=== PATIENT | male | born 1960 | race Caucasian/White ===

== ENCOUNTER 2017-11-23 07:59 | Day surgery (SDC) | payer OTHER ==
[2017-11-23] MEDS ORDERED: MIDAZOLAM 1 MG/ML 2 ML INJ ×3 (10:10→10:11)
[2017-11-23] MEDS ORDERED: FENTAnyl 50 MCG/ML VIAL (10:11)
[2017-11-23] MEDS ORDERED: PROPOFOL 20 ML ×2 (10:20→10:27)
== END 2017-11-23 12:17 | disposition home or self-care (01) ==
LOC: GIL 07:59
DX: Z12.11 Encounter for screening for malignant neoplasm of colon (principal); D12.6 Benign neoplasm of colon, unspecified; K64.8 Other hemorrhoids; I10 Essential (primary) hypertension
CPT/HCPCS: 45380; 88305

== ENCOUNTER 2019-04-07 12:27 | Outpatient (CLI) | payer OTHER ==
[2019-04-08 10:03] LABS: TYPE AND SCREEN 1 1
== END 2019-04-08 23:59 | disposition home or self-care (01) ==
LOC: LAB 04-08 23:59
DX: D69.6 Thrombocytopenia, unspecified (principal)
CPT/HCPCS: 36430; 86644; 86850; 86900; 86901; 86945

== ENCOUNTER 2019-04-08 09:07 | Day surgery (SDC) | payer OTHER ==
[2019-04-08] MEDS ORDERED: PROPOFOL 20 ML ×2 (16:42→16:43)
== END 2019-04-08 19:16 | disposition home or self-care (01) ==
LOC: GIL 09:07 → SDS 09:07 → GIL 19:16
DX: I85.00 Esophageal varices without bleeding (principal); K76.6 Portal hypertension; K31.89 Other diseases of stomach and duodenum
CPT/HCPCS: 43244